=== PATIENT | female | born 2000 | race Caucasian/White ===

== ENCOUNTER 2020-10-29 19:29 | Emergency (ER) | payer SELFPAY ==
[~2020-10-29] VITALS: Ht 152.4 cm; Wt 51.3 kg
--- NOTE | 2020-10-29 19:46 | NUR ---
PT BIB [facility] FROM [place] FROM SLIPPING ON A PIECE OF PAPER, C/O RT WRIST AND HEAD PAIN, DENIES KO, DENIES ANY CHANGES IN LOC. A/O X4, NO SOB OR LABORED BREATHING. AFEBRILE. CLEAR SPEECH, COMPLETE SENTENCES. PERRLA. Sridhar KIMBALL AT BEDSIDE, MSE IN PROGRESS.
--- NOTE | 2020-10-29 19:50 | NUR ---
XRAY AT BEDSIDE.
[2020-10-29] MEDS ORDERED: IBUPROFEN 600 MG TABLET PO ONE (20:15)
[2020-10-29] MEDS ORDERED: IBUP-1955 PO (20:17)
[2020-10-29] MEDS ORDERED: IBUPROFEN 600 MG TABLET ONE (20:23)
--- NOTE | 2020-10-29 20:29 | NUR ---
Patient discharged to home in stable condition. A/O x4, denies any pain/discomfort upon discharge. Written and verbal after care instructions given. Patient verbalizes understanding of instructions. Stressed follow up or return to ER for worsening s/s. steady gait.
[2020-10-29 20:30] VITALS: BP 118/72
== END 2020-10-29 20:31 | disposition home or self-care (01) ==
LOC: ER 19:31
DX: S16.1XXA Strain of muscle, fascia and tendon at neck level, initial encounter (principal); S50.11XA Contusion of right forearm, initial encounter; S09.90XA Unspecified injury of head, initial encounter; W01.0XXA Fall on same level from slipping, tripping and stumbling without subsequent striking against object, initial encounter; Y92.89 Other specified places as the place of occurrence of the external cause; F17.210 Nicotine dependence, cigarettes, uncomplicated
CPT/HCPCS: 72050; 73090; A4663